=== PATIENT | female | born 1965 | race Caucasian/White ===

== ENCOUNTER 2024-01-16 19:49 | Emergency (ER) | payer BC ==
[~2024-01-16] VITALS: Ht 165.1 cm; Wt 63.6 kg
[2024-01-16 19:55] VITALS: TEMP 98.4
[2024-01-16] MEDS ORDERED: silver sulfadiazine cream 400gm jar TP ONE (20:00)
[2024-01-16] MEDS ORDERED: silver sulfadiazine cream 50gm TP ONE (20:20)
[2024-01-16] MEDS: TETanus/Pertussis (Acell)/Diphther VAC/PF (Tdap-Adult) 0.5ml syringe IMVAC ONE (20:27)
[2024-01-16] MEDS: HYDROcodone/acetaminophen 5mg/325mg tablet PO ONE (20:28)
[2024-01-16] MEDS ORDERED: HYDR-3965 PO (20:30)
[2024-01-16] MEDS ORDERED: CEPH-585 PO (20:30)
[2024-01-16] MEDS: silver sulfadiazine cream 50gm TP ONE (20:30)
[2024-01-16] MEDS ORDERED: SILV50CR31 TOP (20:33)
[2024-01-16 20:39] VITALS: BP 141/88; PULSE 89; RESP 18; O2SAT 99
== END 2024-01-16 20:40 | disposition home or self-care (01) ==
LOC: ER 19:50
DX: T23.252A Burn of second degree of left palm, initial encounter (principal); X08.8XXA Exposure to other specified smoke, fire and flames, initial encounter; Y93.89 Activity, other specified; Y92.89 Other specified places as the place of occurrence of the external cause; Y99.8 Other external cause status
CPT/HCPCS: 16020; 90471; 90715; 99283; A6258